=== PATIENT | female | born 1985 | race Caucasian/White ===

== ENCOUNTER 2022-10-29 08:15 | Outpatient (CLI) | payer BC, SELFPAY ==
[2022-10-29 12:42] LABS: Basophils Percent Auto 0.3 % (0.2-1.2); Eosinophils Absolute Auto 0.1 K/mm3 (0-0.3); Eosinophils Percent Auto 1.3 % (0-4.4); Hematocrit 44.8 % (37.0-47.0); Immature Granulocyte Absolute 0.02 K/mm3 (0.00-0.031); Immature Granulocyte Percent A 0.2 % (0-0.5); Lymphocytes Absolute Auto 3.21 K/mm3 (0.9-3.2); Lymphocytes Percent Auto 32.3 % (18.3-44.2); Mean Corpuscular HGB Conc 33.5 g/dl (32-36); Mean Corpuscular Hemoglobin 32.4 pg (26-34); Mean Corpuscular Volume 96.8 fl (80-100); Mean Platelet Volume 11.1 fl (7.4-10.4); Monocytes Absolute Auto 0.6 K/mm3 (0.1-0.6); Monocytes Percent Auto 6.4 % (2.6-8.5); Neutrophils Absolute Auto 5.9 K/mm3 (1.3-6.7); Neutrophils Percent Auto 59.5 % (45.5-73.1); Platelet Count Result 252 k/mm3 (150-375); Red Blood Count 4.63 M/mm3 (4.2-5.4); Red Cell Distribution Width 12.6 % (11.5-14.5); White Blood Count 9.9 K/mm3 (4.5-10.0)
[2022-10-29 12:48] LABS: Alanine Aminotransferase 47 U/L (6-35); Albumin Level 4.2 g/dL (3.5-5.1); Alkaline Phosphatase 68 U/L (38-126); Anion Gap 9 mmol/L (8-16); Aspartate Amino Transferase 47 U/L (14-36); Bilirubin,Total 0.7 mg/dL (0.2-1.3); Blood Urea Nitrogen 15 mg/dL (7-17); Calcium 8.8 mg/dL (8.4-10.2); Carbon Dioxide 25 mmol/L (22-30); Chloride 106 mmol/L (98-107); Cholesterol 176 mg/dL (0-200); Estimated Glomerular Filt Rate > 60; Glucose 71 mg/dL (65-110); HDL Direct 47 mg/dL; Potassium 4.5 mmol/L (3.4-5.0); Sodium 140 mmol/L (137-145); Triglycerides 112 mg/dL (<150)
[2022-10-29 12:59] LABS: LDL Cholesterol Direct 112 mg/dL
== END 2022-10-29 08:16 | disposition home or self-care (01) ==
LOC: ANHGOSHLAB 08:18
PROVIDERS: PCP Internal Medicine; Visit Provider Nurse Practitioner
DX: F41.9 Anxiety disorder, unspecified (principal); E66.01 Morbid (severe) obesity due to excess calories
CPT/HCPCS: 36415; 80053; 80061; 84443; 85025

== ENCOUNTER 2024-10-17 08:36 | Outpatient (CLI) | payer BC, SELFPAY ==
--- NOTE | ~2024-10-17 | US_ITS ---
Pelvic ultrasound. Clinical History: Abnormal uterine bleeding Technique: Realtime transabdominal and transvaginal scanning of the pelvis was performed. Color flow Doppler and Doppler spectral analysis were performed. Findings: The uterus is anteverted. The endometrial stripe has a thickness of 6 mm. No focal mass is identified. Neither ovary seen. No adnexal mass seen.. There is no evidence of free fluid in the cul de sac. Impression: No significant abnormality seen. Neither ovary visualized. Reviewed, dictated and finalized at location . Impression: No significant abnormality seen. Neither ovary visualized.
== END 2024-10-17 08:37 | disposition home or self-care (01) ==
PROVIDERS: PCP Nurse Practitioner; Visit Provider Nurse Practitioner
DX: N93.8 Other specified abnormal uterine and vaginal bleeding (principal)
CPT/HCPCS: 76830; 76856

== ENCOUNTER 2025-02-13 05:19 | Emergency (ER) | payer OTHER, SELFPAY ==
--- NOTE | ~2025-02-13 | XR_ITS ---
EXAMINATION: XR chest 1V portable 02/13/2025 06:04 INDICATION: Shortness of breath PROCEDURE: AP portable chest COMPARISON: No prior studies for comparison. FINDINGS: The lungs are clear. The cardiomediastinal silhouette is within normal limits. There are no pleural effusions. There is no pneumothorax suspected. IMPRESSION: 1: NO ACUTE CARDIOPULMONARY DISEASE. Reviewed, dictated and finalized at location O.
--- OUTSIDE RECORDS SUMMARY | 2025-02-13 05:21 | XMS_ITS | Patient Health Record ---
Author Organization [facility] [employer] Address [address] [place] [address] Care Team Providers Care Police Patrol Officer Name Role Phone Pat Mota APN Primary Care Provider Unavailab Kem Fragoso Unavailable [phone] Ravin Rivas Unavailable [phone] Allergies No Known Allergies Results Component Value Reference Range Notes UDT Reviewed date:04/19/2024 05:03:45 PM Interpretation: Performing Lab: Notes/Report: THC POS 0 - 50 ng/ml Cocaine NEG 0 - 300 ng/ml Amphetamine NEG 0 - 1000 ng/ml Buprenorphine (BUP) NEG 0 - 10 ng/ml Secobarbital (Bar) NEG 0 - 300 ng/ml Oxazepam (BZO) NEG 0 - 300 ng/ml 4-owiqhehdmf-4,6-hzwmgjev-4,3-diphenylpyrrolidine (BRANDI P) NEG 0 - 300 ng/ml Methamphetamine (MET) NEG 0 - 1000 ng/ml Methylenedioxymethamphetamine (MDMA) NEG 0 - 500 ng/ml Morphine (MOP 300/[id number]) NEG 0 - 300 ng/ml Methadone (MTD) NEG 0 - 300 ng/ml Phencyclidine (PCP) NEG 0 - 25 ng/ml Nortriptyline (TCA) NEG 0 - 1000 ng/ml Oxycodone NEG 0 - 300 ng/ml x NEG 0 - 300 ng/ml Reason For Referral No Information Medications Medication SIG (Take, Route, Frequency, Duration) Notes Start Date End Date Status Vitamin B Complex - Capsule as directed Orally Active Montelukast Sodium 10 MG Tablet Oral; Duration: 30 Days Acti ve Cyclobenzaprine HCl 10 MG Tablet Oral; Duration: 10 Days Acti ve Auvelity 45-105 MG Tablet Extended Release 1 tablet Orally twice a day; Duration: 30 days 02/11/2025 Active Drospirenone-Ethinyl Estradiol 3-0.02 MG Tablet Oral; Duration: 84 Days Active metFORMIN HCl ER 500 MG Tablet Extended Release 24 Hour Oral; Duration: 90 Days Acti ve traZODone HCl 50 MG Tablet Take 1 Tablet (50 mg) by mouth daily at bedtime. Active Propranolol HCl 10 MG Tablet 1 tablet Orally twice a day; Duration: 90 days As needed, hold if Heart rate is less than 60 beats per minute. 02/11/2025 Active Social History Tobacco Use: Social History Observation Description Date Details (start date - stop date) Former Smoker NA - NA Sex Assigned At : Social History Observation Description Sex Assigned At Female Social History Miscellaneous: Social Info Question Answer Notes Advance Care Planning Are you your own decision-maker Yes Do you have Power of Power Lineman Technician for Health or [facility]? No Safety issues: Are there any firearms in the house? No Social History Social Info Question Answer Notes Household: Marital Status: Single Number of Adults in household: 1 Number of Children in Household: 0 Level of Education: Professional Schools/Masters /PhD Drug/Alcohol: Social Info Question Answer Notes Drugs Have you used drugs other than those for medical reasons in the past 12 months? Yes Methamphetamine? No Crack? No LSD? No Ecstacy? No Prescription opiates? No Marijuana? Yes Ketamine? No PCP? No Is there a minor (18 years or younger) at risk at home? No Are you still using? Yes Do you want treatment? No AUDIT-C (Standard) Did you have a drink containing alcohol in the past year? 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 Adm its daily Do you drink alcohol? No Problems Problem Type SNOMED Code ICD Code Onset Dates Problem Status W/U Status Risk Notes Problem Primary insomnia (4909056) Primary insomnia (F51.01) Active confirmed Problem Generalized anxiety disorder (86374234) IAM (generalized anxiety disorder) (F41.1) Active confirmed Problem Severe recurrent major depression without psychotic features (62216127) Severe episode of recurrent major depressive disorder, without psychotic features (F33.2) Active confirmed Problem Mild recurrent major depression (24143233) MDD (major depressive disorder), recurrent episode, mild (F33.0) Active confirmed Problem Nondependent cannabis abuse (020845721) Marijuana use (F12.90) Active confirmed Problem Sleep disturbance (21125080) Sleep disturbance (G47.9) Active confirmed Vital Signs Heart Rate 92 /min 02/11/2025 Height-cm 162.56 cm 02/11/2025 Blood pressure diastolic 94 mm Hg 02/11/2025 Weight-kg 104.33 kg 02/11/2025 Height 64 in 02/11/2025 Blood pressure systolic 139 mm Hg 02/11/2025 Weight 230 lbs 02/11/2025 BMI 39.48 kg/m2 02/11/2025 Encounters Encounter Location Date Provider Diagnosis [employer] [facility] [address] 04/19/2024 Ravin Clubb Severe episode of recurrent major depressive disorder, without psychotic features F33.2 ; IAM (generalized anxiety disorder) F41.1 ; Primary insomnia F51.01 and Marijuana use F12.90 [employer] [facility] [address] 05/22/2024 Ravin Clubb Severe episode of recurrent major depressive disorder, without psychotic features F33.2 ; IAM (generalized anxiety disorder) F41.1 ; Marijuana use F12.90 and Sleep disturbance G47.9 [employer], [employer] [address] [address] 06/29/2024 Ravin Clubb MDD (major depressiv e disorder), recurrent episode, mild F33.0 ; IAM (generalized anxiety disorder) F41.1 and Sleep disturbance G47.9 [email or web address] [facility] [address] 11/08/2024 Kem Morse Encounter for screen ing for cardiovascular disorders Z13.6 ; Encounter for screening for depression Z13.31 ; IAM (generalized anxiety disorder) F41.1 and Binge eating disorder, moderate F50.811 [email or web address] [facility] [address] 12/13/2024 Kem Handleya Encounter for screen ing for depression Z13.31 ; Encounter for screening for cardiovascular disorders Z13.6 ; IAM (generalized anxiety disorder) F41.1 ; Binge eating disorder, moderate F50.811 and Severe episode of recurrent major depressive disorder, without psychotic features F33.[address] [address] 01/10/2025 Kem Morse IAM (generalized anxiety disorder) F41.1 ; Severe episode of recurrent major depressive disorder, without psychotic features F33.2 and Binge eating disorder, moderate F50.811 [place] [address] [address] 02/11/2025 Kem Morse IAM (generalized anxiety disorder) F41.1 ; Severe episode of recurrent major depressive disorder, without psychotic features F33.2 and Binge eating disorder, moderate F50.811 [place] [address] [address] 01/10/2025 Kem Morse [place] [address] [address] 06/22/2024 Ravin Clubb [place] [address] [address] 06/28/2024 Ravin Clubb Severe episode of recurrent major depressive disorder, without psychotic features F33.[address] [address] 12/10/2024 Ravin Clubb [place] [address] [address] 12/10/2024 Kem Morse [address] [address] 12/10/2024 Kem Handleya Assessments Encounter Date Diagnosis (ICD Code) Assessment Notes Treatment Notes Treatment Clinical Notes Section Notes 02/11/2025 IAM (generalized anxiety disorder) (ICD-10 - F41.1) 01/10/2025 IAM (generalized anxiety disorder) (ICD-10 - F41.1) 01/10/2025 Severe episode of recurrent major depressive disorder, without psychotic features (ICD-10 - F33.2) Electronic Prior Authorization was requested for Auvelity 45-105 MG Tablet Extended Release. Provider can order medication once approval received. 12/13/2024 Encounter for screening for cardiovascular disorders (ICD-10 - Z13.6) 12/13/2024 Encounter for screening for depression (ICD-10 - Z13.31) 11/08/2024 Encounter for screening for cardiovascular disorders (ICD-10 - Z13.6) 06/28/2024 Severe episode of recurrent major depressive disorder, without psychotic features (ICD-10 - F33.2) 05/22/2024 IAM (generalized anxiety disorder) (ICD-10 - F41.1) 1. depression - rates her depression 09/27. - PHQ-9 score: 14 - pt denied SI plan: - continue bupropion HCL ER (XL) 300 mg daily. - increase citalopram to 40 mg po daily - start Aripiprazole 2 mg HS. - continue psychotherapy 2. Anxiety - rates her anxiety 09/27. - IAM-7 score: 11 - pt reported improved anxiety control with the use of current medications. - Patient has not taken Clonazepam since last visit. plan: - continue Propranolol 10 mg BID PRN. - continue psychotherapy. 3. Substance Use - Actively trying to cut down on marijuana use. - Patient mentioned the election broke her and it's been hard to get out of that dip. - Plan: a. Encourage continued reduction of marijuana use. b. Monitor for any withdrawal symptoms. c. discussed impact of marijuana use on mental health and medication metabolism. 4. sleep -waking up too early and being unable to fall back asleep - reports approximately 5 hours of sleep per night. plan: - continue trazodone 50 mg HS. - practice sleep hygiene - continue psychotherapy - discussed melatonin use - discussed magnesium supplements for sleep quality. 05/22/2024 Severe episode of recurrent major depressive disorder, without psychotic features (ICD-10 - F33.2) 1. depression - rates her depression 09/27. - PHQ-9 score: 14 - pt denied SI plan: - continue bupropion HCL ER (XL) 300 mg daily. - increase citalopram to 40 mg po daily - start Aripiprazole 2 mg HS. - continue psychotherapy 2. Anxiety - rates her anxiety 09/27. - IAM-7 score: 11 - pt reported improved anxiety control with the use of current medications. - Patient has not taken Clonazepam since last visit. plan: - continue Propranolol 10 mg BID PRN. - continue psychotherapy. 3. Substance Use - Actively trying to cut down on marijuana use. - Patient mentioned the election broke her and it's been hard to get out of that dip. - Plan: a. Encourage continued reduction of marijuana use. b. Monitor for any withdrawal symptoms. c. discussed impact of marijuana use on mental health and medication metabolism. 4. sleep -waking up too early and being unable to fall back asleep - reports approximately 5 hours of sleep per night. plan: - continue trazodone 50 mg HS. - practice sleep hygiene - continue psychotherapy - discussed melatonin use - discussed magnesium supplements for sleep quality. 06/29/2024 IAM (generalized anxiety disorder) (ICD-10 - F41.1) 1. Major Depressive Disorder - PHQ-9 score: 8 (mild depression), down from 14 at last visit - Patient reports several days of little interest/pleasure in activities, feeling down/depressed/ho peless - Continue Citalopram Hydrobromide 40 mg daily - continue bupropion HCL ER (XL) 300 mg po daily. - continue aripiprazole 2 mg po HS. - Monitor depressive symptoms and adjust medications as needed - Follow-up 2. Generalized Anxiety Disorder - IAM-7 score: 4 (mild anxiety), down from 11 at last visit - continue Propranolol 10 mg po BID PRN. - Patient reports several days of feeling nervous/anxious/o n edge, unable to stop/control worry - Continue current medication: Propranolol, taken twice daily - Monitor anxiety symptoms and adjust medications as needed - Encourage relaxation techniques and anxiety-reducing activities 3. Insomnia - Patient reports difficulty staying asleep, waking up too early (sleep 3:30-5:30 am, needs to wake at 6:45 am) - Mentions sleep cycle may be in vacation mode after recent break - Continue current medication: Trazodone 50 mg po HS, magnesium supplement - Encourage good sleep hygiene, consistent sleep schedule, relaxing bedtime routine - Monitor sleep patterns and adjust medications as needed 4. Medication Management - Refill prescriptions: Abilify (aripiprazole), bupropion 300 mg, propranolol, trazodone - Provide 90-day supply of medications - Monitor medication adherence and side effects 5. Follow-Up - Schedule appointment in three months - Option for patient to call or come to the walk-in clinic for concerns between appointments 6. Additional Notes - No reported hallucinations, delusions, or paranoia - No suicidal thoughts or thoughts of hurting others - Patient reports improved concentration 06/29/2024 MDD (major depressive disorder), recurrent episode, mild (ICD-10 - F33.0) 1. Major Depressive Disorder - PHQ-9 score: 8 (mild depression), down from 14 at last visit - Patient reports several days of little interest/pleasure in activities, feeling down/depressed/ho peless - Continue Citalopram Hydrobromide 40 mg daily - continue bupropion HCL ER (XL) 300 mg po daily. - continue aripiprazole 2 mg po HS. - Monitor depressive symptoms and adjust medications as needed - Follow-up 2. Generalized Anxiety Disorder - IAM-7 score: 4 (mild anxiety), down from 11 at last visit - continue Propranolol 10 mg po BID PRN. - Patient reports several days of feeling nervous/anxious/o n edge, unable to stop/control worry - Continue current medication: Propranolol, taken twice daily - Monitor anxiety symptoms and adjust medications as needed - Encourage relaxation techniques and anxiety-reducing activities 3. Insomnia - Patient reports difficulty staying asleep, waking up too early (sleep 3:30-5:30 am, needs to wake at 6:45 am) - Mentions sleep cycle may be in vacation mode after recent break - Continue current medication: Trazodone 50 mg po HS, magnesium supplement - Encourage good sleep hygiene, consistent sleep schedule, relaxing bedtime routine - Monitor sleep patterns and adjust medications as needed 4. Medication Management - Refill prescriptions: Abilify (aripiprazole), bupropion 300 mg, propranolol, trazodone - Provide 90-day supply of medications - Monitor medication adherence and side effects 5. Follow-Up - Schedule appointment in three months - Option for patient to call or come to the walk-in clinic for concerns between appointments 6. Additional Notes - No reported hallucinations, delusions, or paranoia - No suicidal thoughts or thoughts of hurting others - Patient reports improved concentration 04/19/2024 IAM (generalized anxiety disorder) (ICD-10 - F41.1) 1. Major Depressive Disorder, Severe - Plan: Increase citalopram from 20 mg to 30 mg daily (she to take 20 mg + 10 mg). Continue bupropion 300 mg daily and trazodone 50 mg at night for sleep. Monitor for signs of serotonin syndrome (sweaty palms, sweaty feet, large pupils). Reevaluate in one month or sooner if needed. She reports depression started in teens, currently rated as 9/10. Holt Depression Inventory score: 47 (severe depression). 2. Generalized Anxiety Disorder - Plan: Discontinue clonazepam use due to contraindication with depression. Start propranolol 10 mg 2-3 times a day as needed for anxiety (do not take if pulse is below 60 bpm). Reevaluate in one month or sooner if needed. She reports anxiety currently rated as 8/10. History of panic attacks. 3. Insomnia - Plan: Continue trazodone 50 mg at night for sleep. Monitor sleep quality and duration. Reevaluate in one month or sooner if needed. She reports getting 6-7 hours of sleep with difficulty falling asleep, staying asleep, and pit steward awakenings. 4. Cannabis use - Plan: Encourage her to decrease cannabis use due to its negative impact on depression. She uses cannabis daily (both smoking and edibles). Reevaluate in one month or sooner if needed. 5. Follow-up and monitoring - Plan: Schedule a follow-up appointment in one month. Encourage her to continue counseling sessions (currently every other week). She may contact the clinic sooner if needed through the provided [employer]ian or phone number. 04/19/2024 Severe episode of recurrent major depressive disorder, without psychotic features (ICD-10 - F33.2) 1. Major Depressive Disorder, Severe - Plan: Increase citalopram from 20 mg to 30 mg daily (she to take 20 mg + 10 mg). Continue bupropion 300 mg daily and trazodone 50 mg at night for sleep. Monitor for signs of serotonin syndrome (sweaty palms, sweaty feet, large pupils). Reevaluate in one month or sooner if needed. She reports depression started in teens, currently rated as 9/10. Holt Depression Inventory score: 47 (severe depression). 2. Generalized Anxiety Disorder - Plan: Discontinue clonazepam use due to contraindication with depression. Start propranolol 10 mg 2-3 times a day as needed for anxiety (do not take if pulse is below 60 bpm). Reevaluate in one month or sooner if needed. She reports anxiety currently rated as 8/10. History of panic attacks. 3. Insomnia - Plan: Continue trazodone 50 mg at night for sleep. Monitor sleep quality and duration. Reevaluate in one month or sooner if needed. She reports getting 6-7 hours of sleep with difficulty falling asleep, staying asleep, and pit steward awakenings. 4. Cannabis use - Plan: Encourage her to decrease cannabis use due to its negative impact on depression. She uses cannabis daily (both smoking and edibles). Reevaluate in one month or sooner if needed. 5. Follow-up and monitoring - Plan: Schedule a follow-up appointment in one month. Encourage her to continue counseling sessions (currently every other week). She may contact the clinic sooner if needed through the provided [employer]ian or phone number. 06/29/2024 Sleep disturbance (ICD-10 - G47.9) 1. Major Depressive Disorder - PHQ-9 score: 8 (mild depression), down from 14 at last visit - Patient reports several days of little interest/pleasure in activities, feeling down/depressed/ho peless - Continue Citalopram Hydrobromide 40 mg daily - continue bupropion HCL ER (XL) 300 mg po daily. - continue aripiprazole 2 mg po HS. - Monitor depressive symptoms and adjust medications as needed - Follow-up 2. Generalized Anxiety Disorder - IAM-7 score: 4 (mild anxiety), down from 11 at last visit - continue Propranolol 10 mg po BID PRN. - Patient reports several days of feeling nervous/anxious/o n edge, unable to stop/control worry - Continue current medication: Propranolol, taken twice daily - Monitor anxiety symptoms and adjust medications as needed - Encourage relaxation techniques and anxiety-reducing activities 3. Insomnia - Patient reports difficulty staying asleep, waking up too early (sleep 3:30-5:30 am, needs to wake at 6:45 am) - Mentions sleep cycle may be in vacation mode after recent break - Continue current medication: Trazodone 50 mg po HS, magnesium supplement - Encourage good sleep hygiene, consistent sleep schedule, relaxing bedtime routine - Monitor sleep patterns and adjust medications as needed 4. Medication Management - Refill prescriptions: Abilify (aripiprazole), bupropion 300 mg, propranolol, trazodone - Provide 90-day supply of medications - Monitor medication adherence and side effects 5. Follow-Up - Schedule appointment in three months - Option for patient to call or come to the walk-in clinic for concerns between appointments 6. Additional Notes - No reported hallucinations, delusions, or paranoia - No suicidal thoughts or thoughts of hurting others - Patient reports improved concentration 04/19/2024 Primary insomnia (ICD-10 - F51.01) 1. Major Depressive Disorder, Severe - Plan: Increase citalopram from 20 mg to 30 mg daily (she to take 20 mg + 10 mg). Continue bupropion 300 mg daily and trazodone 50 mg at night for sleep. Monitor for signs of serotonin syndrome (sweaty palms, sweaty feet, large pupils). Reevaluate in one month or sooner if needed. She reports depression started in teens, currently rated as 9/10. Holt Depression Inventory score: 47 (severe depression). 2. Generalized Anxiety Disorder - Plan: Discontinue clonazepam use due to contraindication with depression. Start propranolol 10 mg 2-3 times a day as needed for anxiety (do not take if pulse is below 60 bpm). Reevaluate in one month or sooner if needed. She reports anxiety currently rated as 8/10. History of panic attacks. 3. Insomnia - Plan: Continue trazodone 50 mg at night for sleep. Monitor sleep quality and duration. Reevaluate in one month or sooner if needed. She reports getting 6-7 hours of sleep with difficulty falling asleep, staying asleep, and pit steward awakenings. 4. Cannabis use - Plan: Encourage her to decrease cannabis use due to its negative impact on depression. She uses cannabis daily (both smoking and edibles). Reevaluate in one month or sooner if needed. 5. Follow-up and monitoring - Plan: Schedule a follow-up appointment in one month. Encourage her to continue counseling sessions (currently every other week). She may contact the clinic sooner if needed through the provided [employer]ian or phone number. 05/22/2024 Marijuana use (ICD-10 - F12.90) 1. depression - rates her depression 09/27. - PHQ-9 score: 14 - pt denied SI plan: - continue bupropion HCL ER (XL) 300 mg daily. - increase citalopram to 40 mg po daily - start Aripiprazole 2 mg HS. - continue psychotherapy 2. Anxiety - rates her anxiety 09/27. - IAM-7 score: 11 - pt reported improved anxiety control with the use of current medications. - Patient has not taken Clonazepam since last visit. plan: - continue Propranolol 10 mg BID PRN. - continue psychotherapy. 3. Substance Use - Actively trying to cut down on marijuana use. - Patient mentioned the election broke her and it's been hard to get out of that dip. - Plan: a. Encourage continued reduction of marijuana use. b. Monitor for any withdrawal symptoms. c. discussed impact of marijuana use on mental health and medication metabolism. 4. sleep -waking up too early and being unable to fall back asleep - reports approximately 5 hours of sleep per night. plan: - continue trazodone 50 mg HS. - practice sleep hygiene - continue psychotherapy - discussed melatonin use - discussed magnesium supplements for sleep quality. 11/08/2024 Encounter for screening for depression (ICD-10 - Z13.31) 11/08/2024 IAM (generalized anxiety disorder) (ICD-10 - F41.1) 12/13/2024 IAM (generalized anxiety disorder) (ICD-10 - F41.1) 01/10/2025 Binge eating disorder, moderate (ICD-10 - F50.811) 02/11/2025 Severe episode of recurrent major depressive disorder, without psychotic features (ICD-10 - F33.2) Electronic Prior Authorization was requested for Auvelity 45-105 MG Tablet Extended Release. Provider can order medication once approval received. 02/11/2025 Binge eating disorder, moderate (ICD-10 - F50.811) 11/08/2024 Binge eating disorder, moderate (ICD-10 - F50.811) 05/22/2024 Sleep disturbance (ICD-10 - G47.9) Assessment and plan reviewed with patient Call for problems with medication, side effects or need for dosage change Compliance issues reviewed Discussed the risks/benefits of this medication Discussed medication side effects Return if symptoms worsen Treatment options reviewed. discussed that it can take weeks to see full therapeutic effects of psychotropic medications. discussed when to seek emergency services. discussed crisis prevention hotline [id number]. 1. depression - rates her depression 09/27. - PHQ-9 score: 14 - pt denied SI plan: - continue bupropion HCL ER (XL) 300 mg daily. - increase citalopram to 40 mg po daily - start Aripiprazole 2 mg HS. - continue psychotherapy 2. Anxiety - rates her anxiety 09/27. - IAM-7 score: 11 - pt reported improved anxiety control with the use of current medications. - Patient has not taken Clonazepam since last visit. plan: - continue Propranolol 10 mg BID PRN. - continue psychotherapy. 3. Substance Use - Actively trying to cut down on marijuana use. - Patient mentioned the election broke her and it's been hard to get out of that dip. - Plan: a. Encourage continued reduction of marijuana use. b. Monitor for any withdrawal symptoms. c. discussed impact of marijuana use on mental health and medication metabolism. 4. sleep -waking up too early and being unable to fall back asleep - reports approximately 5 hours of sleep per night. plan: - continue trazodone 50 mg HS. - practice sleep hygiene - continue psychotherapy - discussed melatonin use - discussed magnesium supplements for sleep quality. 12/13/2024 Binge eating disorder, moderate (ICD-10 - F50.811) 04/19/2024 Marijuana use (ICD-10 - F12.90) 1. Major Depressive Disorder, Severe - Plan: Increase citalopram from 20 mg to 30 mg daily (she to take 20 mg + 10 mg). Continue bupropion 300 mg daily and trazodone 50 mg at night for sleep. Monitor for signs of serotonin syndrome (sweaty palms, sweaty feet, large pupils). Reevaluate in one month or sooner if needed. She reports depression started in teens, currently rated as 9/10. Holt Depression Inventory score: 47 (severe depression). 2. Generalized Anxiety Disorder - Plan: Discontinue clonazepam use due to contraindication with depression. Start propranolol 10 mg 2-3 times a day as needed for anxiety (do not take if pulse is below 60 bpm). Reevaluate in one month or sooner if needed. She reports anxiety currently rated as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
[2025-02-13 05:24] VITALS: BP 141/90; PULSE 83; RESP 20; TEMP 36.8; O2SAT 99
--- NOTE | 2025-02-13 05:29 | ECG_ITS ---
Test Date: 2025-02-13 05:39:08 Measurements Intervals [place] Rate: 81 P: -3 FL: 155 QRS: 32 QRSD: 83 T: 12 QT: 383 QTc: 446 Interpretive Statements SINUS RHYTHM BASELINE ARTIFACT- I, II, III, AVR, AVL, AVF, V1-V6 NORMAL ECG No previous ECG available for comparison Electronically Signed On 02-13-2025 06:43:43 CDT by Devonte Waldrop D.O.
[2025-02-13 05:39] LABS: Hematocrit 44.5 % (37.0-47.0); Hemoglobin 15.3 g/dL (12.0-15.0); Immature Granulocyte Percent A 0.3 % (0-0.5); Lymphocytes Absolute Auto 3.20 K/mm3 (0.9-3.2); Mean Corpuscular HGB Conc 34.4 g/dl (32-36); Mean Corpuscular Hemoglobin 31.3 pg (26-34); Mean Corpuscular Volume 91.0 fl (80-100); Nucleated Red Blood Cells Absolute Auto 0.000 K/mm3 (0.0-0.012); Nucleated Red Blood Cells Perc 0.0 % (0.0-0.2); Platelet Count Result 292 k/mm3 (150-375); Red Blood Count 4.89 M/mm3 (4.2-5.4); White Blood Count 11.2 K/mm3 (4.5-10.0)
[2025-02-13] MEDS: ONDANSETRON INJ 4 MG/2 ML VIAL IV PUSH (05:47)
[2025-02-13] MEDS: SODIUM CHLORIDE 0.9% IV 1,000 ML 999 ML IV CONT (05:47)
[2025-02-13 05:48] LABS: SPREG INTERNAL CONTROL Positive; Serum Qual hCG Negative
--- NOTE | 2025-02-13 05:48 | ED.GENADULT ---
HPI - General Adult General Chief complaint: Nausea/Vomiting/Diarrhea Stated complaint: N/V, SOB, RUSSO Time Seen by Provider: 02/13/25 05:22 History of Present Illness HPI narrative: Patient is a 39-year-old female who presents emergency department this morning with URI symptoms. Patient states that for the past day she has been having headache, shortness of breath, nausea and vomiting, she feels like her asthma is acting up. Denies any sick contacts at home. Any fevers or chills. Denies any abdominal pain. Patient states that she has been trying to use her rescue inhaler at home but has not noticed any improvement. Denies any additional symptoms or concerns. Related Data Home Medications ?Medication ?Instructions ?Recorded ?Confirmed ?Last Taken ?Type cetirizine 10 mg tablet (Zyrtec) 10 mg PO DAILY PRN 10/28/22 04/06/24 Unknown History Metformin 500 mg PO 04/06/24 Unknown History Teresa Control PO 04/06/24 Unknown History Allergies Allergy/AdvReac Type Severity Reaction Status Date / Time No Known Allergies Allergy Verified 02/13/25 05:28 Review of Systems Review of Systems: All systems are reviewed and are negative unless stated otherwise in the HPI. [facility] Past Medical History Medical History Anxiety Asthma Allergies Surgical History Surgical History History of cholecystectomy Family History Family History Mother Depression Anxiety Grandparent Uterine cancer Grandparent Diabetes mellitus Anxiety Depression Heart problem Social History Social History Smoking status: Never smoker Additional smoking assessment comments: from age [age] Alcohol intake: current Substance use: never Lack of Transportation: No Lack of Food: Never True Current Housing: I Have Housing Concerned About Future Housing: No Difficulty Paying Gas/Electric Bills: No Difficulty Paying for Meds: No Currently Unemployed: No Education: Master's Degree or Higher Difficulty w/ Childcare or Family Care: No Living arrangements: alone Occupation/Education: occupation Agree to blood products: Yes Exam Narrative: General: Alert, awake, afebrile, in no acute distress. HEENT: PERRL, no rhinorrhea, no post nasal drip, oropharynx clear. Neck: Trachea midline, no JVD, no lymphadenopathy. Cardiovascular: Regular rate and rhythm, no murmurs, rubs or gallops, no peripheral edema. Respiratory: Clear to auscultation bilaterally, no tachypnea, no wheezing appreciated on examination, no rhonchi, no rubs, no respiratory distress. Abdomen: Soft, nontender, nondistended, no rebound, no guarding, no peritoneal signs. Musculoskeletal: No joint swelling or deformity, normal muscle tone. Skin: No rashes or petechia, no signs of infection. Psychiatric: Alert and oriented, normal behavior and judgment for situation. Neurological: Alert and oriented to person, place, and time. Follows all commands. No focal deficits, speech is clear and fluent. Course Vital Signs Vital signs: Vital Signs Temperature 98.3 F 02/13/25 05:24 Pulse Rate 83 02/13/25 05:24 Respiratory Rate 20 02/13/25 05:24 Blood Pressure 141/90 H 02/13/25 05:24 Pulse Oximetry 99 02/13/25 05:24 Oxygen Delivery Room Air 02/13/25 05:24 Temperature 98.3 F 02/13/25 05:24 Pulse Rate 78 02/13/25 06:02 Respiratory Rate 20 02/13/25 06:02 Blood Pressure 141/90 H 02/13/25 05:24 Pulse Oximetry 99 02/13/25 05:24 Oxygen Delivery Room Air 02/13/25 05:24 Medical Decision Making MDM Narrative Medical decision making narrative: The patient was evaluated by myself in the emergency department. History is obtained from patient who is an independent historian and physical exam was performed. External medical records were reviewed at this time. IV was established and pertinent tests were ordered. Patient was administered a DuoNeb breathing treatment, 125 mg of IV Solu-Medrol, 4 mg of IV Zofran, 15 mg of IV Toradol, 1 L IV fluid bolus with normal saline for all of her symptoms. EKG was obtained which revealed sinus rhythm rate of 81 beats per minute, no evidence of acute ischemia. EKG was independently interpreted by me and is currently pending official cardiology read. Laboratory results obtained revealing mild transaminitis otherwise no acute process. Patient is denying any abdominal pain. States that she feels significantly better after the medications. Imaging studies obtained included CXR which was independently interpreted by me revealing no acute process, which is pending final radiology interpretation. Differential diagnosis considerations include acute viral syndrome, asthma exacerbation, dehydration, electrolyte derangements. Comorbidities impacting this visit include history of asthma. I have evaluated and discussed social determinants of health with the patient that could potentially impact subsequent diagnosis and treatment plans. On repeat assessment of the patient, reevaluation revealed that the patient is doing well and is in no acute distress. Patient symptoms have improved since she arrived to our emergency department. Repeat vital signs were all reviewed and noted to be stable. Differential diagnosis and treatment plan were discussed with the patient at bedside. Patient agrees with discussion and after shared medical decision making agrees with discharge. All questions were answered to the patient's satisfaction. Patient will follow up with her PCP in 3-5 days. Patient was provided with strict return precautions and instructed to return to the emergency department if any new or worsening symptoms develop. The patient was discharged in stable condition. Vital Signs Vital Signs: Vital Signs Temperature 98.3 F 02/13/25 05:24 Pulse Rate 83 02/13/25 05:24 Respiratory Rate 20 02/13/25 05:24 Blood Pressure 141/90 H 02/13/25 05:24 Pulse Oximetry 99 02/13/25 05:24 Oxygen Delivery Room Air 02/13/25 05:24 Temperature 98.3 F 02/13/25 05:24 Pulse Rate 78 02/13/25 06:02 Respiratory Rate 20 02/13/25 06:02 Blood Pressure 141/90 H 02/13/25 05:24 Pulse Oximetry 99 02/13/25 05:24 Oxygen Delivery Room Air 02/13/25 05:24 Lab Data 02/13/25 05:31 02/13/25 05:31 Labs: Lab Results 02/13/25 02/13/25 Range/Units 05:31 05:41 WBC 11.2 H (4.5-10.0) K/mm3 RBC 4.89 (4.2-5.4) M/mm3 Hgb 15.3 H (12.0-15.0) g/dL Hct 44.5 (37.0-47.0) % MCV 91.0 (80-100) fl MCH 31.3 (26-34) pg MCHC 34.4 (32-36) g/dl RDW 11.6 (11.5-14.5) % Plt Count 292 (150-375) k/mm3 MPV 9.9 (7.4-10.4) fl Immature Gran % (Auto) 0.3 (0-0.5) % Neut % (Auto) 63.1 (45.5-73.1) % Lymph % (Auto) 28.7 (18.3-44.2) % Reeves % (Auto) 6.4 (2.6-8.5) % Eos % (Auto) 1.0 (0-4.4) % Baso % (Auto) 0.5 (0.2-1.2) % Lymph # (Auto) 3.20 (0.9-3.2) K/mm3 Reeves # (Auto) 0.7 H (0.1-0.6) K/mm3 Eos # (Auto) 0.1 (0-0.3) K/mm3 Baso # (Auto) 0.1 (0.0-0.1) K/mm3 Abs Immat Gran (auto) 0.03 (0.00-0.031) K/mm3 Absolute Neuts (auto) 7.1 H (1.3-6.7) K/mm3 Absolute Nucleated RBC 0.000 (0.0-0.012) K/mm3 Nucleated RBC % 0.0 (0.0-0.2) % Sodium 137 (137-145) mmol/L Potassium 3.8 (3.4-5.0) mmol/L Chloride 105 (98-107) mmol/L Carbon Dioxide 24 (22-30) mmol/L Anion Gap 8 (4-12) mmol/L BUN 13 (7-17) mg/dL Creatinine 0.81 (0.7-1.0) mg/dL Estim Creat Clear Calc 98 ml/min Estimated GFR > 60 (59 - ) Glucose 133 H (65-110) mg/dL Calcium 9.3 (8.4-10.2) mg/dL Magnesium 2.1 (1.6-2.3) mg/dL Total Bilirubin 0.9 (0.2-1.3) mg/dL AST 89 H (14-36) U/L ALT 91 H (6-35) U/L Alkaline Phosphatase 80 (38-126) U/L Total Protein 8.1 (6.3-8.2) g/dL Albumin 4.3 (3.5-5.1) g/dL Lipase 202 (23-300) U/L Serum HCG, Qual Negative Influenza A (RT-PCR) Negative (Negative) Influenza B (RT-PCR) Negative (Negative) RSV (RT-PCR) Negative (Negative) SARS-CoV-2 RNA (RT-PCR) Negative (Negative) Discharge Plan Discharge Clinical Impression: Acute viral syndrome Patient Disposition: Home Condition: Improved Instructions: Antibiotic Form, Viral Syndrome (ED) Additional Instructions: Please follow-up with your family doctor within the next 3-5 days. Return to emergency department if any new or worsening symptoms develop. Take the prescribed steroid Dosepak as instructed to help with your symptoms. Patient Language: Malian Prescriptions: New methylprednisolone [Medrol (Pepito)] 4 mg tablets,dose pack See Rx Instructions .ROUTE .COMPLEX Qty: 21 0RF Rx Instructions: for 6 days No Action cetirizine [Zyrtec] 10 mg tablet 10 mg PO DAILY PRN bupropion HCl 150 mg tablet extended release 24 hr 150 mg PO QAM Qty: 90 0RF Teresa Control PO Metformin 500 mg PO Rx Instructions: 1 tablet daily trazodone 50 mg tablet 50 mg PO QHS Qty: 30 2RF clonazepam 0.5 mg tablet 0.5 mg PO DAILY PRN (Reason: anxiety) Qty: 20 0RF cyclobenzaprine 10 mg tablet 10 mg PO BID PRN (Reason: muscle spasm) Qty: 20 0RF citalopram 20 mg tablet 20 mg PO DAILY Qty: 30 5RF montelukast 10 mg tablet 10 mg PO DAILY Qty: 30 5RF albuterol sulfate 90 mcg/actuation HFA aerosol inhaler 1 inh inhalation Q4H PRN (Reason: shortness of breath or wheezing) Qty: 8.5 1RF Follow-up/Referrals: Pat Mota, [employer] [Primary Care Provider, Internal Medicine] - 3 Days Time of Disposition: 06:30
[2025-02-13 05:50] LABS: Lipase 202 U/L (23-300); Magnesium 2.1 mg/dL (1.6-2.3)
[2025-02-13 05:58] LABS: Alanine Aminotransferase 91 U/L (6-35); Albumin Level 4.3 g/dL (3.5-5.1); Alkaline Phosphatase 80 U/L (38-126); Anion Gap 8 mmol/L (4-12); Aspartate Amino Transferase 89 U/L (14-36); Bilirubin,Total 0.9 mg/dL (0.2-1.3); Blood Urea Nitrogen 13 mg/dL (7-17); Calcium 9.3 mg/dL (8.4-10.2); Carbon Dioxide 24 mmol/L (22-30); Chloride 105 mmol/L (98-107); Estimated CRCL calculation 98 ml/min; Estimated Glomerular Filt Rate > 60; Glucose 133 mg/dL (65-110); Potassium 3.8 mmol/L (3.4-5.0); Sodium 137 mmol/L (137-145); Total Protein 8.1 g/dL (6.3-8.2)
[2025-02-13] MEDS: KETOROLAC 15 MG/ML VIAL (*BKC) IV PUSH (06:01)
[2025-02-13] MEDS: IPRATROPIUM 0.5 MG/ALBUTEROL SULFATE 2.5 MG AMPUL.NEB 3 ML INHALATION (06:01)
[2025-02-13 06:02] VITALS: PULSE 78; RESP 20
[2025-02-13 06:21] LABS: Influenza A QL RT-PCR Negative (Negative); Influenza B QL RT-PCR Negative (Negative); RSV RNA, RT-PCR Negative (Negative); SARS-CoV-2 RNA PCR Negative (Negative)
[2025-02-13 06:41] VITALS: BP 116/60; PULSE 86; RESP 18; TEMP 37.1; O2SAT 99
== END 2025-02-13 06:42 | disposition home or self-care (01) ==
PROVIDERS: Emergency Provider Emergency Medicine; PCP Nurse Practitioner
DX: B34.9 Viral infection, unspecified (principal); Z20.822 Contact with and (suspected) exposure to COVID-19; F41.9 Anxiety disorder, unspecified; J45.909 Unspecified asthma, uncomplicated
CPT/HCPCS: 36415; 71045; 80053; 83690; 83735; 84703; 85025; 87637; 93005; 94640; 96361; 96374; 96375; 99284; J1885; J2405; J2919; J7030

== ENCOUNTER 2025-05-08 09:32 | Outpatient (CLI) | payer OTHER, SELFPAY ==
--- OUTSIDE RECORDS SUMMARY | 2025-05-08 12:45 | XMS_ITS | Patient Health Record ---
Author Organization [facility] [employer] Address [address] [place] [address] Care Team Providers Care Last Greaser Name Role Phone Pat Mota APN Primary Care Provider Unavailab Kem Fragoso Unavailable [phone] Ravin Rivas Unavailable [phone] Allergies No Known Allergies Reason For Referral No Information Medications Medication SIG (Take, Route, Frequency, Duration) Notes Start Date End Date Status Drospirenone-Ethinyl Estradiol 3-0.02 MG Tablet Oral; Duration: 84 Days Active Propranolol HCl 10 MG Tablet 1 tablet Orally twice a day; Duration: 90 days As needed, hold if Heart rate is less than 60 beats per minute. 04/17/2025 Active Montelukast Sodium 10 MG Tablet Oral; Duration: 30 Days Not-Taking metFORMIN HCl ER 500 MG Tablet Extended Release 24 Hour Oral; Duration: 90 Days Active Cyclobenzaprine HCl 10 MG Tablet Oral; Duration: 10 Days Not-Taking traZODone HCl 50 MG Tablet Take 1 Tablet (50 mg) by mouth daily at bedtime. Oral Once a day; Duration: 90 days As needed Active Auvelity 45-105 MG Tablet Extended Release 1 tablet Orally twice a day; Duration: 30 days 04/17/2025 Active Vitamin B Complex - Capsule as directed Orally Active Magnesium 300 MG Capsule 1 capsule with a meal Orally Once a day Active Social History Tobacco Use: Social History Observation Description Date Details (start date - stop date) Never Smoker NA - NA Sex Assigned At : Social History Observation Description Sex Assigned At Female Social History Miscellaneous: Social Info Question Answer Notes Advance Care Planning Are you your own decision-maker Yes Do you have Power of Jet Wiper for Health or Medi esperanza? 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 Adm its daily Do you drink alcohol? No Problems Problem Type SNOMED Code ICD Code Onset Dates Problem Status W/U Status Risk Notes Problem Moderate recurrent major depression (14408784) Major depressive disorder, recurrent, moderate (F33.1) Active confirmed Problem Primary insomnia (5119102) Primary insomnia (F51.01) Active confirmed Problem Generalized anxiety disorder (85074259) IAM (generalized anxiety disorder) (F41.1) Active confirmed Problem Severe recurrent major depression without psychotic features (72028967) Severe episode of recurrent major depressive disorder, without psychotic features (F33.2) Active confirmed Problem Mild recurrent major depression (00416971) MDD (major depressive disorder), recurrent episode, mild (F33.0) Active confirmed Problem Nondependent cannabis abuse (580156123) Marijuana use (F12.90) Active confirmed Problem Sleep disturbance (90127907) Sleep disturbance (G47.9) Active confirmed Problem Binge eating disorder, moderate (F50.811) Active confirmed Vital Signs Heart Rate 89 /min 04/17/2025 Height-cm 162.56 cm 04/17/2025 Blood pressure diastolic 85 mm Hg 04/17/2025 Weight-kg 106.6 kg 04/17/2025 Height 64 in 04/17/2025 Blood pressure systolic 128 mm Hg 04/17/2025 Weight 235 lbs 04/17/2025 BMI 40.33 kg/m2 04/17/2025 Encounters Encounter Location Date Provider Diagnosis [facility] [employer] [facility], Walkin [address] [place] [address] 05/22/2024 Ravin Clubb Severe episode of recurrent major depressive disorder, without psychotic features F33.2 ; IAM (generalized anxiety disorder) F41.1 ; Marijuana use F12.90 and Sleep disturbance G47.9 [facility] [employer] [facility], [address] [place] [address] 06/29/2024 Ravin Clubb MDD (major depressiv e disorder), recurrent episode, mild F33.0 ; IAM (generalized anxiety disorder) F41.1 and Sleep disturbance G47.9 [facility] [employer] [facility] [address] [place] [address] 11/08/2024 Kem Morse Encounter for screen ing for cardiovascular disorders Z13.6 ; Encounter for screening for depression Z13.31 ; IAM (generalized anxiety disorder) F41.1 and Binge eating disorder, moderate F50.811 [facility] [employer] [facility] [address] [place] [address] 12/13/2024 Kem Morse Encounter for screen ing for depression Z13.31 ; Encounter for screening for cardiovascular disorders Z13.6 ; IAM (generalized anxiety disorder) F41.1 ; Binge eating disorder, moderate F50.811 and Severe episode of recurrent major depressive disorder, without psychotic features F33.2 [facility] [employer] [facility] [address] [place] [address] 01/10/2025 Kem Morse IAM (generalized anxiety disorder) F41.1 ; Severe episode of recurrent major depressive disorder, without psychotic features F33.2 and Binge eating disorder, moderate F50.811 [facility] [employer] [facility] [address] [place] [address] 02/11/2025 Kem Morse IAM (generalized anxiety disorder) F41.1 ; Severe episode of recurrent major depressive disorder, without psychotic features F33.2 and Binge eating disorder, moderate F50.811 [facility] [employer] [facility] [address] [place] [address] 03/20/2025 Kem Morse IAM (generalized anxiety disorder) F41.1 ; Severe episode of recurrent major depressive disorder, without psychotic features F33.2 and Binge eating disorder, moderate F50.811 [facility] [employer] [facility] [address] [place] [address] 04/17/2025 Kem Morse IAM (generalized anxiety disorder) F41.1 ; Major depressive disorder, recurrent, moderate F33.1 and Binge eating disorder, moderate F50.811 [facility] [employer] [facility] [address] [place] [address] 01/10/2025 Kem Morse [facility] [employer], [facility] [address] [place] [address] 04/17/2025 Kem Bunchoza [facility] [employer], [facility] [address] [place] [address] 06/22/2024 Ravin Clubb [facility] [employer], [facility] [address] [place] [address] 06/28/2024 Ravin Clubb Severe episode of recurrent major depressive disorder, without psychotic features F33.2 [facility] [employer] [facility] [address] [facility] [address] [place] [address] 12/10/2024 Ravin Clubb [facility] [employer] [facility] [address] [place] [address] 12/10/2024 Kem Morse [facility] [employer], [facility] [address] [facility] [address] [place] [address] 12/10/2024 Kem Morse Assessments Encounter Date Diagnosis (ICD Code) Assessment Notes Treatment Notes Treatment Clinical Notes Section Notes 05/22/2024 IAM (generalized anxiety disorder) (ICD-10 - [...] - discussed magnesium supplements for sleep quality. 06/28/2024 Severe episode of recurrent major depressive disorder, without psychotic features (ICD-10 - F33.2) 06/29/2024 IAM (generalized anxiety disorder) (ICD-10 - F41.1) 1. Major Depressive Disorder - PHQ-9 score: 8 (mild depression), down from 14 at last visit - Patient reports several days of little interest/pleas ure in activities, feeling down/depressed /hopeless - Continue Citalopram Hydrobromide 40 mg daily [...] - Patient reports several days of feeling nervous/anxiou s/on edge, unable to stop/control worry - Continue current medication: Propranolol, taken twice daily - Monitor anxiety symptoms and adjust medications as needed - Encourage relaxation techniques and anxiety-reduci ng activities 3. Insomnia - Patient reports difficulty [...] 4. Medication Management - Refill prescriptions: Abilify (aripiprazole) , bupropion 300 mg, propranolol, trazodone - Provide 90-day supply of medications - Monitor medication adherence and side effects 5. Follow-Up - Schedule appointment in three months - Option for patient to call or come to the walk-in clinic for concerns between appointments 6. Additional Notes - No reported hallucinations , delusions, or paranoia - No suicidal thoughts or thoughts of hurting others - Patient reports improved concentration 06/29/2024 MDD (major depressive disorder), recurrent episode, mild (ICD-10 - F33.0) 1. Major Depressive Disorder - PHQ-9 score: 8 (mild depression), down from 14 at last visit - Patient reports several days of little interest/pleas ure in activities, feeling down/depressed /hopeless - Continue Citalopram Hydrobromide 40 mg daily [...] - Patient reports several days of feeling nervous/anxiou s/on edge, unable to stop/control worry - Continue current medication: Propranolol, taken twice daily - Monitor anxiety symptoms and adjust medications as needed - Encourage relaxation techniques and anxiety-reduci ng activities 3. Insomnia - Patient reports difficulty [...] 4. Medication Management - Refill prescriptions: Abilify (aripiprazole) , bupropion 300 mg, propranolol, trazodone - Provide 90-day supply of medications - Monitor medication adherence and side effects 5. Follow-Up - Schedule appointment in three months - Option for patient to call or come to the walk-in clinic for concerns between appointments 6. Additional Notes - No reported hallucinations , delusions, or paranoia - No suicidal thoughts or thoughts of hurting others - Patient reports improved concentration 11/08/2024 Encounter for screening for cardiovascular disorders (ICD-10 - Z13.6) 12/13/2024 Encounter for screening for cardiovascular disorders (ICD-10 - Z13.6) 12/13/2024 Encounter for screening for depression (ICD-10 - Z13.31) 01/10/2025 IAM (generalized anxiety disorder) (ICD-10 - F41.1) 01/10/2025 Severe episode of recurrent major depressive disorder, without psychotic features (ICD-10 - F33.2) Electronic Prior Authorization was requested for Auvelity 45-105 MG Tablet Extended Release. Provider can order medication once approval received. 02/11/2025 IAM (generalized anxiety disorder) (ICD-10 - F41.1) 03/20/2025 IAM (generalized anxiety disorder) (ICD-10 - F41.1) 04/17/2025 Major depressive disorder, recurrent, moderate (ICD-10 - F33.1) 04/17/2025 IAM (generalized anxiety disorder) (ICD-10 - F41.1) 04/17/2025 Binge eating disorder, moderate (ICD-10 - F50.811) 03/20/2025 Severe episode of recurrent major depressive disorder, without psychotic features (ICD-10 - F33.2) Electronic Prior Authorization was requested for Auvelity 45-105 MG Tablet Extended Release. Provider can order medication once approval received. 02/11/2025 Severe episode of recurrent major depressive disorder, without psychotic features (ICD-10 - F33.2) Electronic Prior Authorization was requested for Auvelity 45-105 MG Tablet Extended Release. Provider can order medication once approval received. 01/10/2025 Binge eating disorder, moderate (ICD-10 - F50.811) 12/13/2024 IAM (generalized anxiety disorder) (ICD-10 - F41.1) 11/08/2024 Encounter for screening for depression (ICD-10 - Z13.31) 11/08/2024 IAM (generalized anxiety disorder) (ICD-10 - F41.1) 06/29/2024 Sleep disturbance (ICD-10 - G47.9) 1. Major Depressive Disorder - PHQ-9 score: 8 (mild depression), down from 14 at last visit - Patient reports several days of little interest/pleas ure in activities, feeling down/depressed /hopeless - Continue Citalopram Hydrobromide 40 mg daily [...] - Patient reports several days of feeling nervous/anxiou s/on edge, unable to stop/control worry - Continue current medication: Propranolol, taken twice daily - Monitor anxiety symptoms and adjust medications as needed - Encourage relaxation techniques and anxiety-reduci ng activities 3. Insomnia - Patient reports difficulty [...] 4. Medication Management - Refill prescriptions: Abilify (aripiprazole) , bupropion 300 mg, propranolol, trazodone - Provide 90-day supply of medications - Monitor medication adherence and side effects 5. Follow-Up - Schedule appointment in three months - Option for patient to call or come to the walk-in clinic for concerns between appointments 6. Additional Notes - No reported hallucinations , delusions, or paranoia - No suicidal thoughts or thoughts of hurting others - Patient reports improved concentration 05/22/2024 Marijuana use (ICD-10 - F12.90) 1. [...] discussed magnesium supplements for sleep quality. 05/22/2024 Sleep disturbance (ICD-10 - G47.9) Assessment [...] discussed magnesium supplements for sleep quality. 11/08/2024 Binge eating disorder, moderate (ICD-10 - F50.811) 12/13/2024 Binge eating disorder, moderate (ICD-10 - F50.811) 02/11/2025 Binge eating disorder, moderate (ICD-10 - F50.811) 03/20/2025 Binge eating disorder, moderate (ICD-10 - F50.811) 12/13/2024 Severe episode of recurrent major depressive disorder, without psychotic features (ICD-10 - F33.2) Electronic Prior Authorization was requested for Auvelity 45-105 MG Tablet Extended Release. Provider can order medication once approval received. 06/29/2024 Other Assessment and plan reviewed with [...] services. discussed crisis prevention hotline 988. 1. Major Depressive Disorder - PHQ-9 score: 8 (mild depression), down from 14 at last visit - Patient reports several days of little interest/pleas ure in activities, feeling down/depressed /hopeless - Continue Citalopram Hydrobromide 40 mg daily [...] - Patient reports several days of feeling nervous/anxiou s/on edge, unable to stop/control worry - Continue current medication: Propranolol, taken twice daily - Monitor anxiety symptoms and adjust medications as needed - Encourage relaxation techniques and anxiety-reduci ng activities 3. Insomnia - Patient reports difficulty [...] 4. Medication Management - Refill prescriptions: Abilify (aripiprazole) , bupropion 300 mg, propranolol, trazodone - Provide 90-day supply of medications - Monitor medication adherence and side effects 5. Follow-Up - Schedule appointment in three months - Option for patient to call or come to the walk-in clinic for concerns between appointments 6. 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 She typically goes to bed around [...] her reproductive system. She has an upcoming OB-SEISMOGRAPHER appointment scheduled for further evaluation. Family history significant for uterine cancer in her grandmother. Plan: - Encouraged patient to attend scheduled OB-SEISMOGRAPHER appointment for evaluation of reproductive symptoms the [...] for 4 weeks - Discussed need for in-police officer and monitoring - Reviewed potential side [...] intended twice-daily regimen due to a pharmacy miscommunication. Patient expresses desire to increase to twice-daily [...] have been made to correct them. 02/11/2025 Other Shreya Mcnamara, a patient with a history of [...] next visit - Encourage ongoing use of stress-reduction techniques the note is transcribed using speech recognition software. It is a reflection of a visit with the patient. It might have some inaccuracy, including medication names and transcribing errors, though efforts have been made to correct them. 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 Medication non-adherence Assessment: Patient reports missing approximately 1.5 weeks of all medications due to a sinus infection followed by a gastrointestinal illness. This unintentional non-adherence has resulted in difficulty re-establishing a consistent medication regimen. Patient acknowledges struggling with medication adherence and has implemented strategies to improve compliance, including setting multiple alarms. Plan: - Resume prescribed medication regimen: - Auvelity twice daily - Propranolol 10 mg twice daily as needed - Trazodone at night - Magnesium at night - Encourage use of multiple alarms (work calendar, home calendar, Google calendar) to improve medication adherence - Follow up in one month to assess medication adherence and clinical response Mood disturbance Assessment: Patient reports feeling off following medication non-adherence. This mood disturbance appears to be related to the recent interruption in psychiatric medication regimen. Patient expresses motivation to improve her situation, stating March's gonna be better and demonstrating proactive steps towards re-establishing medication routine and seeking new therapy options. Plan: - Resume prescribed psychiatric medications as outlined above - Assist patient in finding a new therapist covered by insurance - Provide resources for local counseling options - Encourage patient to review therapist backgrounds and consider telehealth options Sleep disturbance Assessment: Patient reports sleep disruption, likely secondary to medication non-adherence, particularly noting inconsistent use of prescribed trazodone. Plan: - Resume trazodone at night as prescribed - Continue magnesium supplementation at night as recommended by walk-in clinic provider Occupational stress Assessment: Patient reports recent consideration of job change, including completing a job interview. 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 Patient expresses renewed motivation to fight for these kids and regain control over her current job situation. Plan: - Encourage continued focus on work-life balance and stress management - Discuss coping strategies and professional boundaries in follow-up appointment the note is transcribed using speech recognition software. It is a reflection of a visit with the patient. It might have some inaccuracy, including medication names and transcribing errors, though efforts have been made to correct them. 04/17/2025 Other she is going to have a sleep study ordered by pcp Shreya Mcnamara presents with worsening depressive symptoms including low energy, work-related anxiety, and excessive daytime sleepiness over the past few weeks following a challenging work situation. Depression with low energy Patient reports struggling over the past month with decreased energy and motivation. She describes exhaustion by end of workday despite primarily sedentary work, falling asleep immediately after work until midnight, and episodes of falling asleep during workday. Energy levels described as very low. She has history of treatment with multiple antidepressants including bupropion, fluoxetine, Effexor, and Trimtex, all of which failed. Currently taking Auvelity twice daily with occasional missed evening doses due to early sleep. Recent blood work showed elevated liver enzymes but otherwise normal results. Plan: - Continue Auvelity twice daily - Complete prior authorization for Auvelity as requested by insurance - Sleep study scheduled through primary care referral - Follow-up in one month Work-related anxiety and confidence issues Patient experienced significant work-related stress following a difficult client meeting where a non-check pilot advocate criticized her work plan, calling it invalid and illegal. Despite finishing range supervisor's reassurance that she performed appropriately, this led to decreased confidence and work paralysis where she becomes overwhelmed and unable to prioritize tasks. She reports freezing up at work, spending evenings worrying about incomplete tasks, and catastrophic thinking about her professional competence. She recognizes need for behavioral tools to manage work-related anxiety. Plan: - Initiate therapy with appointment scheduled for Tuesday with therapist specializing in her specific needs - Patient exploring personal security specialist for accountability and physical activity the note is transcribed using speech recognition software. It is a reflection of a visit with the patient. It might have some inaccuracy, including medication names and transcribing errors, though efforts have been made to correct them. Plan Of Treatment Next Appt Details Provider Name:Kem Opal benavides, 05/15/2025 09:45:00 AM, [address], [facility] [address], [place], [address], Insurance Providers Payer Name Payer Address Payer Phone Subscriber Number Group Number Insured Name Patient Relationship to Insured Coverage Start Date Coverage End Date [facility] [address] [place] [address] [id number] SHREYA MCNAMARA Self - patient is the insured [...] data from external devices were recorded at [facility], starting on 12/20/2023 and continuing through various dates including 02/14/2024, 02/28/2024, and 07/10/2024, with the latest entry on 10/02/2024. Surgical History Surgery Date(Month/Year) galbladder removal 2006
--- OUTSIDE RECORDS SUMMARY | 2025-05-08 12:45 | XMS_ITS | Data Portability ---
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 will start, BMP/uric acid at follow up WWE 2 mos with FU all questions answered, support given. [email or web address] Not available 12/17/2022 23:35:24 03/15/2023 03/15/2023 UA and culture t o rule out UTI BMP and uric acid today for spironolactone use pain appears to be muscular- will do scheduled OTC ibuprofen and flexeril for a week. if a week after completing pain is still bothersome, pt to call for pelvic PT referral. [email or web address] Not available 03/16/2023 10:03:48 Plan of Treatment Reminders Order Date Submit Date Provider Last Modified By Organization Details Last Modified Time Details Appointments None recorded. Lab BMP, blood 2022 023 [facility] (Lab), [address], [place], [address], 14:27:42 uric acid, serum or plasma 2022 023 [facility] (Lab), [address], [place], [address], 14:27:46 Referral None recorded. Procedures None recorded. Surgeries None recorded. Imaging US, pelvis 2022 [address], [address], [place], [address], 21:13:13 US, transvagina l [address], [address], [place], [address], 21:13:13 Medication Orders cyclobenzap rine 10 mg tablet 2022 023 [email or web address] [facility], [address], [place], [place], [id number], 14:50:43 spironolact one 50 mg tablet 2022 023 [facility], [place], [facility], [address], [place], [place], [id number], 3 14:35:51 NuvaRing 0.12 mg-0.015 mg/24 hr vaginal 2022 023 [facility], [place], [facility], [address], [place], [place], [id number], 3 14:35:51 Patient TargetsNo targets recorded. Patient InstructionsNo instructions recorded. Reason for Referral None Reported. Results Created Date Observation Date Name Description Value Unit Range Abnormal Flag Note LastModifiedBy Organization Detail LastModifiedTime 03/15/2003/15/2023 URIC ACID uric acid 3.7 mg/dL 2.3-6. 6 Not Available [facility] (Lab) [address], [place], [address], 03/16/2023 03:33:04 03/15/2003/1503/15/2023 BASIC METAB OLIC PANEL sodium 138 mmol/ L 133-14 6 Not Available [facility] (Lab) [address], [place], [address], 03/16/2023 03:33:05 03/15/20 23 03/15/2023 BASIC METAB OLIC PANEL potassium 4.2 mmol/ L 3.5-5. 1 Not Available [facility] (Lab) [address], [place], [address], 03/16/2023 03:33:05 03/15/20 23 03/15/2023 BASIC METAB OLIC PANEL chloride 102 mmol/ L 98-107 Not Available [facility] (Lab) [address], [place], [address], 03/16/2023 03:33:05 03/15/20 23 03/15/2023 BASIC METAB OLIC PANEL carbon dioxide 25 mmol/ L 21-31 Not Available [facility] (Lab) [address], [place], [address], 03/16/2023 03:33:05 03/15/20 23 03/15/2023 BASIC METAB OLIC PANEL anion gap 11 mmol/ L 4-13 Not Available [facility] (Lab) [address], [place], [address], 03/16/2023 03:33:05 03/15/20 23 03/15/2023 BASIC METAB OLIC PANEL blood urea nitrogen 9 mg/dL 7-25 Not Available [facility] (Lab) [address], [place], [address], 03/16/2023 03:33:05 03/15/20 23 03/15/2023 BASIC METAB OLIC PANEL creatinine 0.82 mg/dL 0.60-1 .30 Not Available [facility] (Lab) [address], [place], [address], 03/16/2023 03:33:05 09/26/03/15/2023 BASIC METAB OLIC PANEL egfrcr (CKD-epi 2020) >90 mL/mi n/1.7 3_m2 >=60 Not Available [facility] (Lab) [address], [place], [address], 03/16/2023 03:33:05 03/15/20 23 03/15/2023 BASIC METAB OLIC PANEL calcium 9.9 mg/dL 8.3-10 .5 Not Available [facility] (Lab) [address], [place], [address], 03/16/2023 03:33:05 03/15/2003/15/2023 BASIC METAB OLIC PANEL glucose 77 mg/dL 70-100 Not Available [facility] (Lab) [address], [place], [address], 03/16/2023 03:33:05 03/29/2003/29/2023 , pelvi s No observ ation record ed. [email or web address] [facility] [address], [place], [address], 03/29/2023 13:43:04 03/29/2003/29/2023 , trans vagin al No observ ation record ed. [email or web address] [facility] [address], [place], [address], 03/29/2023 13:42:55 03/29/2003/29/2023 [place], pelvi s No observ ation record ed. [email or web address] [address] [address], [place], [address], 03/29/2023 22:30:55 Result Notes None recorded. Problems Name Problem SNOMED Code Status Onset Date Resolution Date Notes Provider Name and Address Organization Details Recorded Time Body mass index 40+ - severely obese 522175413 Active 2022 Gabi Woo MD [address], [place], [address], [place] [facility] 3 23:40:19 Polycystic ovary syndrome 866882341 Active 2022 Gabi Woo MD [address], [place], [address], [facility] 3 23:40:26 Mixed anxiety and depressive disorder 546216134 Active 2022 Gabi Woo MD [address], [place], [address], [facility] 3 23:40:40 Problem Notes None recorded. Procedures Surgical History Date Name Laterality Status Provider Name and Address Organization Details Recorded Time 06/04/20 21 Date of Last Pap Smear completed [facility] 12/17/2022 13:52:56 06/20/19 06 Cholecystectomy completed [facility] 12/17/2022 14:06:32 Cholecystectomy completed Anjali Rivera [facility] 03/25/2023 14:50:37 Imaging Results None recorded. Procedure Notes None recorded. Medical Equipment None Reported. Allergies No known drug allergies Medications Name Sig Start Date Stop Date Status Note LastModified by Organization Details LastModified Time cyclobenzapr ine 10 mg tablet Take 1 tablet 3 times a day by oral route for 7 days. 03/25 completed Not Available Not Available Not Available prednisone 10 mg tablet active Not Available Not Available Not Available trazodone 50 mg tablet active Not Available Not Available No t Available citalopram 20 mg tablet active Not Available Not Available Not Available montelukast 10 mg tablet active Not Available Not Available Not Available albuterol sulfate HFA 90 mcg/actuatio n aerosol inhaler 03/15 completed Not Available Not Available Not Available doxycycline hyclate 100 mg tablet 12/17 completed Not Available Not Available Not Available spironolacto ne 50 mg tablet Take 1 tablet every day by oral route. active Not Available Not Available No t Available Trazodone 50 mg tablet 12/17 completed Not Available Not Available Not Available NuvaRing 0.12 mg-0.015 mg/24 hr vaginal Insert 1 vaginal ring every month by vaginal route. active Not Available Not Available No t Available bupropion HCl XL 150 mg 24 hr tablet, extended release 03/15 completed Not Available Not Available Not Available NuvaRing 12/17 completed Not Available Not Available Not Available Vitals Date Recorded Body height Body mass index (BMI) Body weight Systolic And Diastolic Provider Name and Address Organization Details Last Updated DateTime 12/17/2022 162.56 cm 40.3 kg/m2 546598.21 g 109/67 mm[Hg] Vee Tinajero [facility] 12/17/2022 14:05:44 Date Recorded Body height Body mass index (BMI) Body weight Systolic And Diastolic Provider Name and Address Organization Details Last Updated DateTime 03/15/2023 162.56 cm 39.5 kg/m2 086288.25 g 121/68 mm[Hg] Marichuy [facility] 03/15/2023 10:03:41 Date Recorded Body height Body mass index (BMI) Body weight Systolic And Diastolic Provider Name and Address Organization Details Last Updated DateTime 03/25/2023 162.56 cm 39.5 kg/m2 262432.25 g 125/80 mm[Hg] [facility] 03/25/2023 14:50:29 Date Recorded Body height Body mass index (BMI) Body weight Systolic And Diastolic Provider Name and Address Organization Details Last Updated DateTime 04/01/2023 162.56 cm 39.5 kg/m2 398084.25 g 140/84 mm[Hg] [facility] 04/01/2023 12:14:29 Social History Question Answer Notes LastModified by Organizat ion Details LastModified Time Are You Blind Or Do You Have Difficulty Seeing? No Information not available 12/17/2022 What Is Your Level Of Caffeine Consumption? Moderate Information not available 12/17/2022 How Much Tobacco Do You Chew? None Information not available 12/17/2022 In The 14 Days Before Symptom Onset, Have You Had Close Contact With A Laboratory-confirme d JUAN CID-19 While That Case Was Ill? No Information n ot available 12/17/2022 In The 14 Days Before Symptom Onset, Have You Had Close Contact With A Person Who Is Under Investigation For COVID-19 While That Person Was Ill? No Information not available 12/17/2022 Have You Been To An Area Known To Be High Risk For COVID-19? No Information not available 12/17/2022 Are You Deaf Or Do You Have Serious Difficulty Hearing? No Information not available 12/17/2022 What Type Of Diet Are You Following? REGULAR Information n ot available 12/17/2022 What Is The Highest Grade Or Level Of School You Have Completed Or The Highest Degree You Have Received? [id number] Information not available 12/17/2022 Are There Any Guns Present In Your Home? No Information not available 12/17/2022 Do You Use Protection During Sex? Usually Information not available 12/17/2022 Do You Use Your Seat Belt Or Car Seat Routinely? Yes Information not available 12/17/2022 Do You Have Smoke And Carbon Monoxide Detectors In Your Home? Yes Information not available 12/17/2022 How Much Tobacco Do You Smoke? No Information not available 12/17/2022 Do You Use Sunscreen Routinely? Yes Information not available 12/17/2022 Have You Used IV Drugs? No Information not available 12/17/2022 Do You Have Difficulty Walking Or Climbing Stairs? No [email or web address] Information not available 04/01/2023 Sex: Unknown Functional Status Question Answer Note LastModified by Organizat ion Details LastModified Time Do you use any illicit or recreational drugs? No Information not available 12/17/2022 What is your level of alcohol consumption? None Information not available 12/17/2022 Are you able to walk independently without assistance or assistive devices? [email or web address] Information not available 12/17/2022 Are you able to care for yourself independently? 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 No [email or web address] Information not available 04/01/2023 What is your exercise level? None Information not available 12/17/2022 Mental Status Question Answer Note LastModified by Organization D etails LastModified Time Do you feel stressed (tense, restless, nervous, or anxious, or unable to sleep at night)? [id number] [email or web address] Information not available 03/25/2023 Family History Relationship Description Onset Age of this Age Resolved Age Notes LastModified by Organization Details LastModified Time Mother Depressive disorder [email or web address] Not available 2022 12:14:32 Mother Depressive disorder [email or web address] Not available 2022 12:14:32 Maternal Grandmother Depressive disorder [email or web address] Not available 2022 12:14:32 Maternal Grandmother Depressive disorder [email or web address] Not available 2022 12:14:32 Maternal Grandfather Depressive disorder [email or web address] Not available 2022 12:14:32 Maternal Grandfather Depressive disorder [email or web address] Not available 2022 12:14:32 Medical History Condition Response Anxiety Disorder Y Allergies (Food, seasonal, environmental ) Y Polycystic ovary syndrome Y Asthma Y Depression/ depression Y Gynecological History Statement/Question Response Flow Moderate Date of LMP 02/18/2023 N Was last menstrual period normal Y STIs/STDs N HPV Vaccine Y Duration of Flow (days) 3 Current Control Method Vaginal Rin g Frequency of Cycle (Q days) 28 Sexually Active? N Unknown Menses Monthly Y Age of first menstrual cycle 13 Date of Last Pap Smear 06/04/2021 Sexual Problems? N Desired Control Method Unknown LMP Definite N Obstetrics History GPAL:G 0 P 0 0 0 0 Past Encounters Encounter ID Performer Location Encounter Start Date Encounter Closed Date Diagnosis/Indication Diagnosis SNOMED-CT Code Diagnosis ICD10 Code Diagnosis IMO Codes Diagnosis Note [id number] Gabi Woo MD [facility] [address] [address] 12/17/2022 13:38:51 12/27/2022 15:35:43 Polycystic ovary syndrome 116848952 E28.2 Transition of care 99912 75995 105 Z75.8 Female hirsutism 2938010 9 L68.0 Body mass index 40+ - severely obese 674603094 Z68.41 Medication monitoring 39 6570382 Z51.81 [id number] Gabi Woo MD [facility] [address] [address] 03/15/2023 09:42:01 03/16/2023 10:20:29 Pelvic floor tension 980539477 R29.898 Pain in pelvis 12267907 R10.2 [id number] Rajiv Hernandez MD [facility] [address],[place] [address] 03/25/2023 14:34:07 03/25/2023 15:25:36 Pain in pelvis 16883510 R10.2 38-year-ol d female who presents for follow-up on pelvic pain. She used some muscle relaxers. She did notice some improvemen t but cannot tolerate the side effects the medication . She has some focal left-sided pain at this time. She is not sexually active. Pain is been present about 6 weeks. It does not radiate to her back or down her legs. It is sharp. Talked about weight management also. Spent some time talked about medication s and calorie management . Obtain pelvic ultrasound and have the patient back to discuss the results. We spent 20 minutes face-to-fa ce. More than 50% was counseling . [id number] Rajiv Hernandez MD [facility] [address],[place] [address] 03/29/2023 11:57:03 03/29/2023 12:50:00 Pain in pelvis 35360634 R10.2 38-year-ol d female who presents for follow-up on pelvic pain. She used some muscle relaxers. She did notice some improvemen t but cannot tolerate the side effects the medication . She has some focal left-sided pain at this time. She is not sexually active. Pain is been present about 6 weeks. It does not radiate to her back or down her legs. It is sharp. Talked about weight management also. Spent some time talked about medication s and calorie management . Obtain pelvic ultrasound and have the patient back to discuss the results. We spent 20 minutes face-to-fa ce. More than 50% was counseling . [id number] Rajiv Hernandez MD [facility] [address] [address] 04/01/2023 11:40:17 04/01/2023 12:54:56 Pain in pelvis 92532767 R10.2 38-year-ol d female with pelvic pain. Pain by exam appears to be related to pelvic musculatur e. She is a normal pelvic ultrasound . She failed treatment with muscle relaxers. She also stated that she does not tolerate them, she is unable to perform at the appropriat e level for work. We talked about different treatment options today. Talked about possible other medication s. We talked about physical therapy. I recommende d that she try physical therapy. She should at least go for the evaluation and discuss treatment plan and diagnosis with the providers there. We spent 20 minutes face-to-fa ce. More than 50% was counseling . She will follow-up for well-woman exam. Health Concerns Section Related Observation LastModified by Organization Detai ls LastModified Time None Recorded Concern Status LastModified by Organization Details LastModified Time None Recorded Advance Directives Directive None Recorded Payers Insurance Date Sequence Insurance Name Policy Number Policy Santiago Covered Member ID Santiago Member ID Guarantor Name 04/19/2023 1 [facility] [id number] Shreya Renteria [id number] Shreya Renteria Notes Date Note Type Note Provider Name and Address Organization Details Recorded Time 12/17/2022 text/html Patient is a 37yo G0 who presents for establishing care and discussing PCOS plan. She is not currently sexually active. Menses: regular on nuva ring for years. PCOS diagnosed at age 23. Does not want to have children. Doing well on nuva ring but concernedabout facial hair and weight gain. Concerns: last WWE:2020 Depression:yes, anx/depression, stable on celexa Domestic violence:denies Gabi Woo MD [address], [place], [address], [place] [facility] 12/17/2022 23:42:35 03/15/2023 text/html Pt is a 38yo G0 here complaining of pjelvic pain for the last 3-4 weeks. started with suprapubic pain, pressure and stabbing, the pressure then resolved and the stabbing pain stayed and is now more on the right side. It hurts the most when she stands up after sitting a while. Normal BMs 2x/day. Not sexually active right now. Started nuva ring and spironolactone in December for PCOS, doing well, no concerns, bleeding is regular. Denies fever, chills, urinary sx other than pressure. Additional concerns: sexually active:no contraception: no Last annual exam: scheduled next week. Gabi Woo MD [address], [place], [address], [facility] 03/16/2023 10:04:21 03/25/2023 text/html 38-year-old female who presents for follow-up on pelvic pain. She used some muscle relaxers. She did notice some improvement but cannot tolerate the side effects the medication. She has some focal left-sided pain at this time. She is not sexually active. Pain is been present about 6 weeks. It does not radiate to her back or down her legs. It is sharp. Talked about weight management also. Spent some time talked about medications and calorie management. Obtain pelvic ultrasound and have the patient back to discuss the results. We spent 20 minutes [id number]. More than 50% was counseling. Rajiv Hernandez MD [address], [place], [address], [facility] 03/25/2023 15:25:09 04/01/2023 text/html 38-year-old female with pelvic pain. Pain by exam appears to be related to pelvic musculature. She is a normal pelvic ultrasound. She failed treatment with muscle relaxers. She also stated that she does not tolerate them, she is unable to perform at the appropriate level for work. We talked about different treatment options today. Talked about possible other medications. We talked about physical therapy. I recommended that she try physical therapy. She should at least go for the evaluation and discuss treatment plan and diagnosis with the providers there. We spent 20 minutes [id number]. More than 50% was counseling. She will follow-up for well-woman exam. Rajiv Hernandez MD [address], [place], [address], [place] [facility] 04/01/2023 12:53:39 OBGyn Episode No OBEpisode recorded.
--- OUTSIDE RECORDS SUMMARY | 2025-05-08 12:45 | XMS_ITS | Clinical Summary ---
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 12/28/2022 8:56 AM CDT 3 Active spironolactone (ALDACTONE) 50 mg tablet Take 1 Tablet (50 mg) by mouth daily. 90 Tablet 12/19/2022 1:03 PM CDT 3 Active albuterol sulfate HFA 90 mcg/actuation aerosol inhaler INHALE 1 PUFF BY MOUTH EVERY 4 HOURS NEEDED FOR SHORTNESS OF BREATH OR WHEEZING. 8.5 Gram 1 09/08/2023 5:03 PM CDT 3 Active predniSONE (DELTASONE) 10 mg tablet Take 1 Tablet (10 mg) by mouth 2 times daily. 10 Tablet 04/12/2023 6:34 PM CDT 3 Active etonogestrel-Et hinyl Estradiol (NuvaRing) 0.12-0.015 mg/24 hr Ring INSERT 1 VAGINAL RING EVERY MONTH 3 Ring. 04/22/2023 4:30 PM CDT 3 Active fluticasone propionate (Flonase Allergy Relief) 50 mcg/spray [place], Suspension nasal inhaler ADMINISTER 1 SPRAY IN EACH NOSTRIL 2 TIMES DAILY NEEDED FOR ALLERGY SYMPTOMS. 16 Gram 09/08/2023 5:03 PM CDT 4 Active etonogestrel-Et hinyl Estradiol 0.12-0.015 mg/24 hr Ring Use 1 vaginal ring once monthly as directed 3 Each 1 09/24/2023 10:53 AM CDT 4 Active buPROPion HCL (WELLBUTRIN XL) 150 mg Extended Release 24 hour tablet Take 1 Tablet (150 mg) by mouth daily in the morning. 90 Tablet 01/10/2024 4:29 PM CDT 4 Active eszopiclone (LUNESTA) 1 mg Tablet Take 1 tablet by mouth at bedtime 30-60 minutes prior to sleep study. 1 Tablet 01/10/2024 4:29 PM CDT 4 Active etonogestrel-Et hinyl Estradiol (NuvaRing) 0.12-0.015 mg/24 hr Ring Insert one ring for 3 weeks, remove for 1 week, repeat again. 3 Each 4 01/10/2024 4:29 PM CDT 4 Active clonazePAM (KlonoPIN) 0.5 mg Tablet Take 1 Tablet (0.5 mg) by mouth 1 time daily as needed for anxiety 20 Tablet 01/26/2024 5:03 PM CDT 4 Active metFORMIN (GLUCOPHAGE XR) 500 mg Extended Release 24 hour tablet Take 1 Tablet (500 mg) by mouth 2 times daily. 180 Tablet 1 02/02/2024 8:57 AM CDT 4 Active cyclobenzaprine (FLEXERIL) 10 mg tablet Take 1 Tablet (10 mg) by mouth 2 times daily as needed for muscle spasm. 20 Tablet 02/18/2024 9:32 AM CDT 4 Active methylPREDNISol one (MEDROL DOSPACK) 4 mg Tablets, Dose Pack Take as directed on package 21 Each 02/18/2024 9:32 AM CDT 4 Active citalopram (CeleXA) 20 mg tablet Take 1 Tablet (20 mg) by mouth daily. 30 Tablet 5 03/29/2024 4:55 PM CDT 4 Active montelukast (SINGULAIR) 10 mg tablet Take 1 Tablet (10 mg) by mouth daily. 30 Tablet 5 06/08/2024 4:33 PM QUALITY HEAD 4 Active citalopram (CeleXA) 10 mg tablet Take 1 Tablet (10 mg) by mouth daily in addition to 20 mg dose. 30 Tablet 04/21/2024 3:47 PM CDT 4 Active citalopram (CeleXA) 20 mg tablet Take 1 Tablet (20 mg) by mouth daily in addition to 10 mg dose. 30 Tablet 04/21/2024 3:47 PM CDT 4 Active albuterol sulfate HFA 90 mcg/actuation aerosol inhaler Inhale 1 puff by mouth every 4 hours as needed for shortness or breath or wheezing 8.5 Gram 1 07/05/2024 12:10 PM QUALITY HEAD 4 Active amoxicillin-cla vulanate (AUGMENTIN) 875-125 mg tablet Take 1 Tablet by mouth 2 times daily until finished 14 Tablet 06/08/2024 4:33 PM QUALITY HEAD 4 Active Drospirenone-Et hinyl estradiol (Teresa, 28,) 3-0.02 mg tablet Take 1 Tablet by mouth daily. 84 Tablet 3 10/05/2024 11:46 AM CDT 4 Active metFORMIN (GLUCOPHAGE XR) 500 mg Extended Release 24 hour tablet Take 1 Tablet (500 mg) by mouth 2 times daily. 180 Tablet 3 10/22/2024 10:42 AM CDT 5 Active ARIPiprazole (ABILIFY) 2 mg tablet Take 1 Tablet (2 mg) by mouth daily. 30 Tablet 06/30/2024 11:23 AM QUALITY HEAD 5 Active ARIPiprazole (ABILIFY) 2 mg tablet Take 1 Tablet (2 mg) by mouth daily. 90 Tablet 08/13/2024 12:09 PM QUALITY HEAD 5 Active propranoloL (INDERAL) 10 mg tablet Take 1 Tablet (10 mg) by mouth 2 times daily as needed. Hold medication if heart rate is less than 60 beats per minute. 180 Tablet 06/30/2024 11:23 AM QUALITY HEAD 5 Active buPROPion HCL (WELLBUTRIN XL) 300 mg Extended Release 24 hour tablet Take 1 Tablet (300 mg) by mouth daily in the morning. 90 Tablet 10/22/2024 10:42 AM CDT 5 Active citalopram (CeleXA) 40 mg tablet Take 1 Tablet (40 mg) by mouth daily. 90 Tablet 10/22/2024 10:42 AM CDT Active ALPRAZolam (XANAX) 2 mg tablet BRING WITH YOU TO OFFICE AND WILL BE INSTRUCTED TO TAKE IN OFFICE ONE HOUR PRIOR TO PROCEDURE 1 Tablet 10/29/2024 11:43 AM CDT 5 Active oxyCODONE-aceta minophen (PERCOCET) 7.5-325 mg Tablet BRING TO OFFICE DAY OF PROCEDURE AND WILL BE INSTRUCTED TO TAKE ONE HOUR PRIOR TO PROCEDURE. 2 Tablet 10/29/2024 11:43 AM CDT Active vortioxetine (Trintellix) 10 mg tablet Take 1 Tablet (10 mg) by mouth daily. 30 Tablet 1 11/26/2024 9:43 AM CDT 5 Active dextromethorpha n IR-buPROPion SR (Auvelity) 45-105 mg tablet, IR & ER, biphasic Take 1 Tablet by mouth 2 times daily. 60 Tablet 1 01/18/2025 2:52 PM CDT 5 Active dextromethorpha n IR-buPROPion SR (Auvelity) 45-105 mg tablet, IR & ER, biphasic Take 1 Tablet by mouth 2 times daily. 60 Tablet 3 03/23/2025 11:12 AM CDT 5 Active methylPREDNISol one (MEDROL DOSPACK) 4 mg Tablets, Dose Pack TAKE DIRECTED ON PACKAGE. 21 Each 02/13/2025 1:33 PM CDT 5 Active albuterol sulfate HFA 90 mcg/actuation aerosol inhaler ADMINISTER 1 PUFF EVERY 4 HOURS NEEDED FOR SHORTNESS OF BREATH OR WHEEZING 8.5 Gram 1 02/22/2025 2:53 PM CDT Active metFORMIN (GLUCOPHAGE XR) 500 mg Extended Release 24 hour tablet Take 2 Tablets (1,000 mg) by mouth 2 times daily. 360 Tablet 4 02/22/2025 2:53 PM CDT 5 Active drospirenone-et hinyl estradioL (BRANDON 28) 3-0.03 mg tablet TAKE 1 TABLET BY MOUTH DAILY 84 Tablet 4 02/22/2025 2:53 PM CDT 5 Active traZODone (DESYREL) 50 mg tablet Take 1 Tablet (50 mg) by mouth daily at bedtime as needed 90 Tablet 1 03/23/2025 11:12 AM CDT 5 Active dextromethorpha n IR-buPROPion SR (Auvelity) 45-105 mg tablet, IR & ER, biphasic Take 1 Tablet by mouth 2 times daily. 60 Tablet 3 04/27/2025 9:38 AM QUALITY HEAD 5 Active Encounters Date Type Department Care Team Description 04/09/2025 External Device Data [facility] Provider, Abstract 02/05/2025 External Device Data [facility] Provider, Abstract 02/05/2025 External Device Data [facility] Provider, Abstract from Last 3 Months Social History Tobacco Use Types Packs/Day Years Used Date Smoking Tobacco: Never Assessed Comments Unknown Sex and Gender Information Value Date Recorded Sex Assigned at Not on file Legal Sex Female 2:47 PM CDT Gender Identity Not on file Sexual Orientation Not on file Plan of Treatment Health Maintenance Due Date Last Done Comments DTAP/TDAP/TD VACCINES (1 - Tdap) 2005 HEPATITIS B VACCINES (1 of 3 - 19+ 3-dose series) 09/2004 HPV/Cotest (21-29) 2007 HPV VACCINES (1 - 3-dose SCDM series) 2013 CERVICAL CANCER SCREENING 02/22/2016 HPV/Cotest (30-65) 02/22/2016 PAP SMEAR 02/22/2016 INFLUENZA VACCINE (#1) 2025 Insurance RX TATE PLANS (INTERNAL) [facility] RX [employer] Commercial RX [employer] RX Member Subscriber Plan / Payer (Ef fective for All Dates) Name:Shreya Renteria Relation to Subscriber:Self Name:Shreya Renteria Payer ID:Not on file Group ID:[id number] Type:RX Commercial Address: [address]
--- NOTE | 2025-05-28 12:33 | WPDHOMESLEEP ---
Sleep Study - Home Unattended Date of Study: 05/08/25 Ordering Provider: Pat Mota APRN Interpreting Provider: Eula Pena DO Home Sleep Study Type: Watch PAT Height: 1.63 m Weight: 106.594 kg Body Mass Index: 40.3 Neck Circumference (inches): 16 [place]: 9 Reason for Sleep Study Excessive daytime sleepiness, trouble falling asleep and trouble staying asleep Sleep History The patient is a 40-year-old female that had a sleep study ordered by her primary care for evaluation of sleep apnea. The patient admits to excessively daytime sleepiness, trouble falling asleep and trouble maintaining sleep. She denies snoring loudly. She denies having interruptions in breathing while asleep. She denies choking or gasping at night. She denies having trouble breathing on her back. She denies morning headaches. She denies having a dry or sore mouth/ throat in the morning. She denies nocturnal heartburn. She urinates 3 times throughout the night. She denies having difficulty returning to sleep if she wakes up throughout the night. She denies any hypnotic or sedative use. She does feel anxious about sleep. She does feel tired or sleepy during the day. She does feel tired in morning. She does have the urge to fall asleep during the day. She denies feeling drowsy while driving. She denies sleep paralysis, cataplexy and hypnagogic/ hypnopompic hallucinations. She does clench or grind her teeth. She denies kicking or jerking her legs excessively. She denies having a restless feeling in her legs. She goes to bed at 9:00 p.m. on work days and at 10:00 p.m. on her days off. It takes her 1 hour to fall asleep. She gets 5 hours of sleep on work days and 6 hours on her days off. Her sleep is not restorative on her days off. She denies taking any planned naps. She denies dream enactment behavior. She denies sleep walking. She consumes 3-4 cups of caffeinated beverage per day. She denies tobacco and alcohol use. She denies exercising on a regular basis. [facility] Past Medical History Medical History Anxiety Asthma Allergies Surgical History Surgical History History of cholecystectomy Family History Family History Mother Depression Anxiety Grandparent Uterine cancer Grandparent Diabetes mellitus Anxiety Depression Heart problem Social History Social History Smoking status: Never smoker Additional smoking assessment comments: from age [age] Alcohol intake: current Substance use: never Lack of Transportation: No Lack of Food: Never True Current Housing: I Have Housing Concerned About Future Housing: No Difficulty Paying Gas/Electric Bills: No Difficulty Paying for Meds: No Currently Unemployed: No Education: Master's Degree or Higher Difficulty w/ Childcare or Family Care: No Living arrangements: alone Occupation/Education: occupation Agree to blood products: Yes Medications Home Medications ?Medication ?Instructions ?Recorded ?Confirmed ?Type cetirizine 10 mg tablet (Zyrtec) 10 mg PO DAILY PRN 10/28/22 03/28/25 History trazodone 50 mg tablet 50 mg PO QHS #30 tabs 11/22/23 03/28/25 Rx Teresa Control PO 04/06/24 03/28/25 History albuterol sulfate 90 mcg/actuation 1 inh inhalation Q4H PRN shortness 02/22/25 03/28/25 Rx aerosol inhaler of breath or wheezing #8.5 grams dextromethorphan IR 45 1 tablet PO BID 02/22/25 03/28/25 History mg-bupropion ER 105 mg biphasic tablet (Auvelity) Sleep Procedure The sleep study was completed using SeeClickFixT a technically adequate device with seven channels: peripheral arterial tone, actigraphy, body position, snore, respiratory movement, pulse oximetry, sleep staging, and heart rate. Prior to using the device, the patient received verbal and written instructions for its application and was provided with the help desk phone number for additional telephonic instruction with 24-hour availability of qualified personnel to answer questions. The study was scored using CMS guidelines. Sleep Architecture The total recording time is 8 hrs, 23 min. The total sleep time is 7 hrs, 32 min. Sleep latency is 22 minutes. REM latency is 81 minutes. The patient had 6 episodes of waking. Sleep architecture shows 10.6% deep sleep, 73.8% light sleep, and (as % Total Sleep Time) showed NREM (Light 73.8%; Deep 10.6%), and a 15.6% stage REM. The patient spent 54.3% of total sleep time in the supine position. Sleep efficiency was 89.86. Respiratory Analysis The overall AHI (pAHI 4%:) is 6.7. The overall AHI (pAHI 3%:) is 13.9. The central AHI is 0.3. The AHI was 12.1 in NREM and 23.5 in REM sleep. The AHI was 12.6 in Supine and 15.4 in Non-supine sleep. Percent of Arnie Duke respirations is 0.0. Oximetry Data The oxygen desaturation index (PAVEL 4%:) is 4.5. The mean saturation is 94%, and the lowest saturation is 89%. Time spent with saturation < 88% is 0.0 minutes. Snoring Profile Snoring average intensity is 43 dB. The patient snored above 45 decibels for 109.3 minutes, 24.2% of sleep time. Cardiac Profile The average pulse rate is 83 beats per minutes. The lowest pulse rate is 58 bpm. The highest pulse rate reported is 125 bpm. Atrial fibrillation was not detected. Premature beats occur 0.1 per minute. Assessment and Plan Assessment and Plan (1) CURTIS (obstructive sleep apnea): Code(s): G47.33 - Obstructive sleep apnea (adult) (pediatric) Status: Acute Assessment and Plan: The patient had an overall AHI of 6.7 with desaturation down to 89%. This is consistent with mild sleep apnea. Due to the patient's anxiety, she qualifies for treatment. I recommend that the patient be prescribed AutoPAP 5-15 cm H2O, CPAP mask/filters/tubing and heated humidity.A mandibular advancement device is also an acceptable treatment option. This should be used with all episodes of sleep.? Compliance should be reviewed within 31-90 days of starting therapy for usage greater than 4 hours per night greater than 70% of the nights. The patient should be asked about symptoms such as?excessive daytime sleepiness, quality of sleep, decreased nocturia, increased?mental functioning such as memory, mood, and concentration. Data The data obtained during this sleep study is adequate for interpretation. Certification This sleep study has been reviewed by a board certified sleep medicine physician.
[2025-05-28 12:34] VITALS: BMI 40.3
== END 2025-05-09 13:57 | disposition home or self-care (01) ==
PROVIDERS: PCP Nurse Practitioner; Visit Provider Nurse Practitioner
DX: G47.19 Other hypersomnia (principal); G47.33 Obstructive sleep apnea (adult) (pediatric)
CPT/HCPCS: 95800